=== PATIENT | female | born 1960 | race African-American/Black ===

== ENCOUNTER 2024-10-22 01:21 | Emergency (ER) | payer SELFPAY ==
[2024-10-22 01:32] VITALS: PULSE 72; RESP 20; TEMP 97.8; BMI 27.4
[2024-10-22] MEDS ORDERED: ACETAMINOPHEN 325 MG TABLET (FP) ONE (01:52)
[2024-10-22] MEDS ORDERED: LIDOCAINE 5% TOPICAL PATCH ONE (01:52)
[2024-10-22] MEDS: ACETAMINOPHEN 325 MG TABLET (FP) PO ONE (01:59)
[2024-10-22] MEDS: LIDOCAINE 5% TOPICAL PATCH TP ONE (01:59)
[2024-10-22 04:54] VITALS: BP 160/84
[2024-10-22] MEDS ORDERED: LIDOCAINE PATCH REMOVAL MC SCH (22:00)
== END 2024-10-22 05:08 | disposition home or self-care (01) ==
LOC: JER 01:21
DX: M54.50 Low back pain, unspecified (principal); G89.29 Other chronic pain
CPT/HCPCS: 99283-25